=== PATIENT | female | born 1985 | race Caucasian/White ===

== ENCOUNTER 2017-01-23 10:00 | Inpatient (IN) | payer OTHER ==
[2017-01-23] MEDS ORDERED: DEXTROSE 5%-LACTATED RINGERS 1,000 ML IV SCH (10:30)
[2017-01-23 11:40] LABS: BASOPHIL 0.4 % (0-2.0); EOSINOPHIL 1.5 % (0-4.5); MCH 31.5 pg (25.7-33.7); MCHC 34.1 g/dl (32.0-36.0); MEAN CELL VOLUME 92.3 fl (80-96); MEAN PLT VOLUME 9.7 fl (7.5-11.1); NEUTROPHILS 62.5 % (42.8-82.8); PLATELET COUNT 184 K/MM3 (134-434); RDW 13.7 % (11.6-15.6); WHITE BLOOD COUNT 7.8 K/mm3 (4.0-10.0)
[2017-01-23 11:44] VITALS: BMI 30.4
[2017-01-23 11:57] LABS: ANION GAP 12 (8-16); CO2 20 mmol/L (21-32); CREATININE 0.6 mg/dL (0.55-1.02); GLUCOSE,RANDOM 79 mg/dL (74-106)
[2017-01-23 12:19] LABS: INR 0.93 (0.82-1.09); PROTHROMBIN TIME (PATIENT) 10.2 SEC (9.98-11.88)
[2017-01-23 12:22] LABS: ACTIVATED PTT 24.9 SECONDS (26.9-34.4)
[2017-01-23] MEDS ORDERED: PROMETHAZINE HCL 25 MG/1 ML VIAL IVPUSH ONE (15:39)
[2017-01-23] MEDS ORDERED: BUTORPHANOL TARTRATE 1 MG/ML VIAL IVPUSH ONE (15:39)
--- NOTE | 2017-01-23 15:48 | HP ---
Past Medical History - Primary Care Physician PCP:: Anthony Alcocer - Admission Chief Complaint: 39.4 weeks, rom, labor History of Present Illness: 31 yo f edc by sono 01/26/17 c/o rom since 10 am today, pain since 1030 am,no bleeding, no fever, cx 4 cm 80 vx -2 mr ,clear, fhr cat 1 . contraction q 3 min History Source: Patient Limitations to Obtaining History: No Limitations - Past Medical History ...: 4 ...Para: 3 ...Term: 3 ...LMP: 04/02/16 ...EDC by Sono: 01/26/17 Additional OB History: 3 , no complication - Past Surgical History Hx Myomectomy: No Hx Transabdominal Cerclage: No - Smoking History Smoking history: Never smoked - Alcohol/Substance Use Hx Alcohol Use: No - Social History Usual Living Arrangement: Yes: With Spouse History of Recent Travel: No Home Medications - Allergies Allergies/Adverse Reactions: Allergies Allergy/AdvReac Type Severity Reaction Status Date / Time No Known Drug Allergies Allergy Verified 01/23/17 11:28 Review of Systems - Review of Systems Constitutional: reports: No Symptoms Eyes: reports: No Symptoms HENT: reports: No Symptoms Neck: reports: No Symptoms Cardiovascular: reports: No Symptoms Respiratory: reports: No Symptoms Gastrointestinal: reports: No Symptoms Genitourinary: reports: No Symptoms Breasts: reports: No Symptoms Reported Musculoskeletal: reports: No Symptoms Integumentary: reports: No Symptoms Neurological: reports: No Symptoms Endocrine: reports: No Symptoms Hematology/Lymphatic: reports: No Symptoms Psychiatric: reports: No Symptoms Physical Exam - Maternity Vital Signs: Vital Signs Temperature 98.1 F 01/23/17 14:00 Pulse Rate 62 01/23/17 15:00 Respiratory Rate 20 01/23/17 15:00 Blood Pressure 122/78 01/23/17 15:00 O2 Sat by Pulse Oximetry (%) Constitutional: Yes: Well Nourished, No Distress, Calm Eyes: Yes: WNL, Conjunctiva Clear, EOM Intact HENT: Yes: WNL, Atraumatic, Normocephalic Neck: Yes: WNL, Supple, Trachea Midline Cardiovascular: Yes: WNL, Regular Rate and Rhythm Breast(s): Yes: WNL - Abdominal Exam/OB Number of Fetuses: Single Presentation: Vertex Contractions: Yes Regularity: Regular Intensity: Mod/Strong Monitor Mode: External Heart Rate Location: [facility] Category: I Accelerations: Uniform Decelerations: None - Vaginal Exam/OB Vaginal Bleediing: No Speculum Exam: No Dilatation (cm): 4 cm Effacement (%): 80 Amniotic Membrane Status: Ruptured Presentation: Vertex/Position Station: -2 - Physical Exam Musculoskeletal: Yes: WNL Extremities: Yes: WNL Edema: LLE: Trace, RLE: Trace Integumentary: Yes: WNL Deep Tendon Reflex Grade: Normal +2 - Labs Lab Results: CBC, BMP 01/23/17 11:15 01/23/17 11:15 Hemorrhage Risk Assessment - Risk Factors Medium Risk Factors: Yes: None High Risk Factors: Yes: None Risk Score: 1 Risk Level: Medium Risk Problem List - Problems (1) with 39 completed weeks gestation Code(s): Z3A.39 - 39 WEEKS GESTATION OF (2) Labor established Code(s): LXF5401 - Assessment/Plan admit for vaginal delivery,, heart monitoring, pain management
--- NOTE | 2017-01-23 17:26 | PN ---
Progress Note (short form) - Note Progress Note: cx 4 cm 80 vx -2 mr, fhr cat 1, irregular contraction , advised pitocin , rba discussed Problem List - Problems (1) with 39 completed weeks gestation Code(s): Z3A.39 - 39 WEEKS GESTATION OF (2) Labor established Code(s): CSL1616 -
[2017-01-23] MEDS ORDERED: OXYTOCIN 15 UNITS/ LR 250 ML 250 ML IVPB SCH ×2 (17:30)
[2017-01-23] MEDS ORDERED: WITCH HAZEL 50% (TUCKS) 40 PAD/JAR PAD TP PRN (18:58)
[2017-01-23] MEDS ORDERED: BENZOCAINE 20% 57 GM BOTTLE TP PRN (18:58)
[2017-01-23] MEDS ORDERED: oxyCODONE HCL 5 MG TABLET PO PRN (18:58)
[2017-01-23] MEDS ORDERED: METHYLERGONOVINE MALEATE 0.2 MG/1 ML AMP IM PRN (18:58)
[2017-01-23] MEDS ORDERED: BENZOCAINE 28 GM HEMORRHOIDAL OINTMENT TP PRN (18:58)
[2017-01-23] MEDS ORDERED: BISACODYL 10 MG SUPP.RECT RC PRN (18:58)
[2017-01-23] MEDS ORDERED: D5W-LR W/ 20 UNITS OXYTOCIN 1,000 ML IV SCH (19:00)
[2017-01-23] MEDS ORDERED: FERROUS SO4 325 MG TABLET (FP) PO SCH (22:00)
[2017-01-24] MEDS: IBUPROFEN 600 MG TABLET (FP) PO PRN ×3 (02:20→21:20)
[2017-01-24] MEDS: ACETAMINOPHEN 325 MG TABLET (FP) PO PRN ×3 (02:20→21:19)
[2017-01-24 07:35] LABS: BASOPHIL 0.4 % (0-2.0); MCH 31.9 pg (25.7-33.7); MCHC 33.9 g/dl (32.0-36.0); MEAN PLT VOLUME 9.6 fl (7.5-11.1); NEUTROPHILS 68.4 % (42.8-82.8); PLATELET COUNT 146 K/MM3 (134-434); RDW 13.7 % (11.6-15.6); WHITE BLOOD COUNT 10.9 K/mm3 (4.0-10.0)
[2017-01-24] MEDS: FERROUS SO4 325 MG TABLET (FP) PO SCH ×2 (09:07→17:31)
[2017-01-24] MEDS: PRENATAL VITAMINS W/ FOLIC ACID TABLET (FP) PO SCH (09:07)
[2017-01-24] MEDS ORDERED: DIPHTH,PERTUSS(ACELL),TET 0.5 ML DISP.SYRIN IM ONE (10:00)
--- NOTE | 2017-01-24 10:43 | PN ---
Progress Note (short form) - Note Progress Note: ppd 1 doing well, no c/o CBC, BMP 01/24/17 07:00 01/23/17 11:15 Last Vital Signs Temp Pulse Resp BP Pulse Ox 99 F 56 L 20 101/64 100 01/24/17 08:57 01/24/17 08:57 01/24/17 08:57 01/24/17 08:57 01/23/17 20:15 abdomen soft, no cva, uterus firm lochai mild no calf tenderness plan ambualte,, encourage breast feeding , d/c home in am Problem List - Problems (1) with 39 completed weeks gestation Code(s): Z3A.39 - 39 WEEKS GESTATION OF (2) Labor established Code(s): [id number] -
[2017-01-24] MEDS ORDERED: FLU VACC QS2017-18 36MOS UP/PF 60 MCG/0.5 ML SYRINGE IM ONE (11:00)
[2017-01-24] MEDS ORDERED: SENNOSIDES/DOCUSATE COMBO (SENNA PLUS) TABLET (UD) PO PRN (22:00)
[2017-01-25] MEDS: IBUPROFEN 600 MG TABLET (FP) PO PRN (09:24)
[2017-01-25] MEDS: ACETAMINOPHEN 325 MG TABLET (FP) PO PRN (09:24)
[2017-01-25] MEDS: FERROUS SO4 325 MG TABLET (FP) PO SCH (09:24)
[2017-01-25] MEDS: PRENATAL VITAMINS W/ FOLIC ACID TABLET (FP) PO SCH (09:24)
[2017-01-25 10:24] VITALS: BP 97/63; PULSE 56; TEMP 98.7
--- NOTE | 2017-01-25 13:55 | DS ---
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 Vital Signs: Vital Signs Temperature 98.7 F 01/25/17 10:22 Pulse Rate 56 L 01/25/17 10:22 Respiratory Rate 20 01/25/17 10:22 Blood Pressure 97/63 01/25/17 10:22 O2 Sat by Pulse Oximetry (%) 100 01/23/17 20:15 Constitutional: Yes: Well Nourished, No Distress, Calm Eyes: Yes: WNL, Conjunctiva Clear, EOM Intact HENT: Yes: WNL, Atraumatic, Normocephalic Neck: Yes: WNL, Supple, Trachea Midline Cardiovascular: Yes: WNL, Regular Rate and Rhythm Respiratory: Yes: WNL, Regular, CTA Bilaterally Gastrointestinal: Yes: WNL ...Rectal Exam: Yes: WNL Renal/: Yes: WNL ....Post : Yes: Uterus firm, Uterus non-tender, Slight lochia rubra Breast(s): Yes: WNL Musculoskeletal: Yes: WNL Extremities: Yes: WNL Integumentary: Yes: WNL Neurological: Yes: WNL, Alert, Oriented ...Motor Strength: WNL Psychiatric: Yes: WNL, Alert, Oriented Labs: CBC, BMP 01/24/17 07:00 01/23/17 11:15 Delivery - Delivery Vaginal Delivery: Spontaneous (no complication) Type of Anesthesia: None Episiotomy/Laceration: None EBL (cc): 300 Delivery, Single - Stages of Labor Date 1st Stage Initiatied: 01/23/17 Time 1st Stage Initiated: 10:00 Date 2nd Stage Initiated: 01/23/17 Time 2nd Stage Initiated: 18:40 Date of Delivery: 01/23/17 Time of Delivery: 18:50 Time Placenta Delivered: 18:55 Placenta: Yes: Spontaneous (no complication) - Condition of Social Media Content Specialist/Box Builder Present: No Infant Gender: Male Weight: 8 lb 11 oz Position: Left, OA Total Hours ROM (Hrs/Mins): 8hrs.55mins. - 1 Minute Total Score: 9 5 Minutes Total Score: 9 - Schlater Feeding Plan Initial Plan: Exclusive throughout hospitalization Discharge Summary Reason For Visit: LABOR Current Active Problems Labor established (Acute) with 39 completed weeks gestation (Acute) Other Procedures: Hospital Course: non complicated Condition: Good - Instructions Diet, Activity, Other Instructions: return to clinic in 6 weeks. call [facility] for appointment. [phone] Disposition: HOME - Home Medications Comprehensive Discharge Medication List: Ambulatory Orders Ibuprofen [Motrin -] 600 mg PO QID #28 tablet 01/25/17
== END 2017-01-25 16:00 | disposition home or self-care (01) | DRG 560 ==
LOC: JLDR 10:00 → J3W 20:41
PROVIDERS: ADMIT Obstetrics & Gynecology; ATTEND Obstetrics & Gynecology
PROC: 10E0XZZ Delivery of Products of Conception, External Approach (ICD-10-PCS; principal; 2017-01-23)
DX: O80 Encounter for full-term uncomplicated delivery (principal); Z3A.39 39 weeks gestation of pregnancy; Z37.0 Single live birth
CPT/HCPCS: 36415; 59409; 80048; 85025; 85610; 85730; 86593; 86850; 86900; 86901; 90686; G0008

== ENCOUNTER 2020-11-04 02:45 | Emergency (ER) | payer OTHER ==
[2020-11-04 03:06] VITALS: BMI 28.3
[2020-11-04] MEDS ORDERED: ACETAMINOPHEN 500 MG TABLET (FP) PO ONE (05:04)
[2020-11-04] MEDS ORDERED: METHOCARBAMOL 500 MG TABLET PO ONE (05:04)
[2020-11-04] MEDS ORDERED: LIDOCAINE 5% TOPICAL PATCH TP ONE (05:04)
[2020-11-04] MEDS ORDERED: METHOCARBAMOL 500 MG TABLET ONE (05:14)
[2020-11-04] MEDS ORDERED: LIDOCAINE 5% TOPICAL PATCH ONE (05:15)
[2020-11-04] MEDS ORDERED: ACETAMINOPHEN 500 MG TABLET (FP) ONE (05:30)
[2020-11-04 07:00] VITALS: BP 106/61; PULSE 63; TEMP 98.3
[2020-11-04] MEDS ORDERED: LIDOCAINE PATCH REMOVAL MC SCH (22:00)
== END 2020-11-04 09:24 | disposition home or self-care (01) ==
LOC: JER 02:45
DX: M54.5 Low back pain (principal)
CPT/HCPCS: 71045-TC-FY; 72040-TC; 72050-TC-FY; 72070-TC-FY; 72100-TC-FY; 84703; 99285-25